=== PATIENT | male | born 1940 | race Caucasian/White ===

== ENCOUNTER 2020-12-05 09:42 | Day surgery (SDC) | payer MEDICARE ==
[~2020-12-05] VITALS: Ht 167.6 cm; Wt 62.7 kg
[~2020-12-05 09:42] MED LIST: ALBU18HF IH; ASCO500T8 PO; BUPIVACAINE/PF 0.5% ONE; CHOL10003 PO; CYAN1TAB29 PO; EPINEPHRINE 1 MG/ML, 1ML ONE; FINA5TAB4 PO; GLUC500T11 PO; KRIL1CAP31 PO; MAGN250T8 PO; OMEP20TA62 PO; POLY17PO5 PO; TAMS-11 PO
[2020-12-05] MEDS ORDERED: [UNRECOGNIZED DRUG - OTHER] PO (10:14)
[2020-12-05 10:17] VITALS: BP 171/68
[2020-12-05] MEDS ORDERED: CHLORHEXIDINE 15 ML UDC PO ONE (10:30)
[2020-12-05] MEDS ORDERED: LACTATED RINGERS 1,000 ML IV SCH (10:30)
[2020-12-05] MEDS ORDERED: ROCURONIUM 10 MG/ML,10ML ONE (10:59)
[2020-12-05] MEDS ORDERED: SUCCINYLCHOLINE 20 MG/ML, 10ML ONE (10:59)
[2020-12-05] MEDS ORDERED: CEFAZOLIN 1,000 MG ONE (10:59)
[2020-12-05] MEDS ORDERED: ONDANSETRON 2MG/ML, 2ML ONE (10:59)
[2020-12-05] MEDS ORDERED: DEXAMETHASONE 4 MG/ML, 1ML ONE (10:59)
[2020-12-05] MEDS ORDERED: PROPOFOL 10 MG/ML, 20ML ONE (10:59)
[2020-12-05] MEDS ORDERED: MIDAZOLAM 1 MG/ML, 2ML ONE (11:04)
[2020-12-05] MEDS ORDERED: FENTANYL PF 250 MCG/5ML ONE (11:11)
[2020-12-05] MEDS ORDERED: BUPIVACAINE/PF-EPI 0.5% 1:200K INFIL ONE (11:23)
[2020-12-05] MEDS ORDERED: BUPIVACAINE/PF 0.5% ONE (13:02)
[2020-12-05] MEDS ORDERED: EPINEPHRINE 1 MG/ML, 1ML ONE (13:02)
[2020-12-05] MEDS ORDERED: OXYC-302 PO (13:25)
[2020-12-05] MEDS ORDERED: ONDANSETRON 2MG/ML, 2ML IVPush PRN (13:30)
[2020-12-05] MEDS ORDERED: ALBUTEROL SULFATE 2.5 MG/3 ML NPPB PRN (13:30)
[2020-12-05] MEDS ORDERED: hydrALAzine 20 MG/ML, 1ML IV PRN (13:30)
[2020-12-05] MEDS ORDERED: OXYcodone 5 MG/5 ML ORAL.SOL UDC PO PRN (13:30)
[2020-12-05] MEDS ORDERED: LABETALOL 5MG/ML, 20ML IV PRN (13:30)
[2020-12-05] MEDS ORDERED: METOCLOPRAMIDE 5 MG/ML, 2ML IV PRN (13:30)
[2020-12-05] MEDS ORDERED: KETOROLAC 30 MG/1 ML IV PRN (13:30)
[2020-12-05] MEDS ORDERED: PROMETHAZINE 25 MG/ML, 1ML IV PRN (13:30)
[2020-12-05] MEDS ORDERED: FENTANYL PF 100 MCG/2ML IV PRN (13:30)
[2020-12-05] MEDS ORDERED: HYDROmorphone 1 MG/ML, 1ML INJ IV PRN (13:30)
[2020-12-05] MEDS ORDERED: DIAZEPAM 5 MG/ML, 2ML IV PRN ×2 (13:30)
[2020-12-05] MEDS ORDERED: MEPERIDINE/PF 25MG/0.5ML IVPush PRN (13:30)
== END 2020-12-05 16:00 | disposition home or self-care (01) ==
LOC: OUT 09:42
PROVIDERS: ATTEND Surgery
DX: K40.31 Unilateral inguinal hernia, with obstruction, without gangrene, recurrent (principal); K21.9 Gastro-esophageal reflux disease without esophagitis; F32.9 Major depressive disorder, single episode, unspecified; I10 Essential (primary) hypertension; J45.909 Unspecified asthma, uncomplicated; Z79.899 Other long term (current) drug therapy; Z72.89 Other problems related to lifestyle; Z87.891 Personal history of nicotine dependence; Z98.890 Other specified postprocedural states; Z20.822 Contact with and (suspected) exposure to COVID-19
CPT/HCPCS: 49521; 88305; 93005; C1781; J0171; J2250; J3010; J7120; U0003; J0690; J1100; J2405; J2704; J0330